=== PATIENT | male | born 1980 | race Native Hawaiian/Other Pacific Islander ===

== ENCOUNTER 2018-03-07 19:06 | Inpatient (IN) | payer BC ==
--- NOTE | 2018-03-07 20:32 | ED PDOC ---
HPI: General Adult Time Seen by Provider: 03/07/18 19:59 Chief Complaint (Nursing): Abnormal Labs History Per: Patient History/Exam Limitations: no limitations Onset/Duration Of Symptoms: Days Additional Complaint(s): Patient with no PMHx sent in by Dr. Piyush Mari for evaluation of elevated BP. Patient states he has no symptoms currently but last week had flu-like illness and neck stiffness that have resolved. Denies headache, chest pain, shortness of breath, or any other symptoms. Past Medical History Reviewed: Historical Data, Nursing Documentation, Vital Signs Vital Signs: Last Vital Signs Temp Pulse 96 H 03/07/18 21:17 Resp 16 03/07/18 21:17 BP 172/126 H 03/07/18 21:17 Pulse Ox 99 03/07/18 23:22 - Medical History PMH: No Chronic Diseases - Family History Family History: States: Unknown Family Hx - Allergies Allergies/Adverse Reactions: Allergies Allergy/AdvReac Type Severity Reaction Status Date / Time No Known Allergies Allergy Verified 03/07/18 19:37 Review of Systems ROS Statement: Except As Marked, All Systems Reviewed And Found Negative Physical Exam - Reviewed Nursing Documentation Reviewed: Yes Vital Signs Reviewed: Yes - Physical Exam Appears: Positive for: Well, Non-toxic, No Acute Distress Head Exam: Positive for: ATRAUMATIC, NORMAL INSPECTION, NORMOCEPHALIC Skin: Positive for: Normal Color, Warm, DRY Eye Exam: Positive for: EOMI, Normal appearance, PERRL ENT: Positive for: Normal ENT Inspection Neck: Positive for: Normal, Painless ROM Cardiovascular/Chest: Positive for: Regular Rate, Rhythm Respiratory: Positive for: CNT, Normal Breath Sounds Gastrointestinal/Abdominal: Positive for: Normal Exam, Soft Back: Positive for: Normal Inspection Extremity: Positive for: Normal ROM Neurologic/Psych: Positive for: Alert, Oriented - Laboratory Results Result Diagrams: 03/07/18 20:34 03/07/18 20:34 - ECG ECG Rhythm: Positive for: Normal QRS, Normal ST Segment, ST/T Changes (ST Depressions in II, III, aVF) O2 Sat by Pulse Oximetry: 99 Pulse Ox Interpretation: Normal Medical Decision Making Medical Decision MakinPM A/P: No PMHx presenting with elevated BP -patient currently asymptomatic -patient has abnormal EKG, elevated BP, and elevated HR -will get labs, give beta-emerson, and re-eval 11PM -HR starting to come down to 160s/90s -case discussed with Dr. June who states only mild BP control at this time and not to bring down too much/too fast -recommends ASA, echo, beta emerson (already given), PRN nitro; Dr. June will see patient in AM and workup for hypertensive changes on EKG v. HOCM -Dr. Mari aware, will admit for hyeprtensive urgency and abnormal EKG Disposition - Clinical Impression Clinical Impression: Abnormal EKG, Hypertensive urgency - Disposition Disposition Time: 23:23 Condition: FAIR Forms: [facility] (Greenlandic)
[2018-03-07 20:49] LABS: BLOOD UREA NITROGEN 13 mg/dl (9-20); CALCIUM 8.8 mg/dL (8.4-10.2); GFR AFRICAN-AMERICAN > 60; GFR NON-AFRICAN AMERICAN 57
[2018-03-07 20:50] LABS: BASO % 0.6 % (0.0-2.0); EOS # 0.2 K/uL (0.0-0.7); EOS % 2.1 % (0.0-4.0); HEMOGLOBIN 15.8 g/dL (12.0-18.0); LYMPH # 2.5 K/uL (1.0-4.3); LYMPH % 28.3 % (20.0-40.0); MEAN CELL VOLUME 89.5 fl (80.0-94.0); MEAN CORPUSCULAR HEMOGLOBIN 30.7 pg (27.0-31.0); MEAN CORPUSCULAR HGB CONC 34.3 g/dL (33.0-37.0); MONO # 0.8 K/uL (0.0-0.8); MONO % 8.6 % (0.0-10.0); NEUT # 5.4 K/uL (1.8-7.0); NEUT % 60.4 % (50.0-75.0); NRBC % 0.1 % (0.0-0.0); RBC 5.14 Mil/uL (4.40-5.90); RED CELL DISTRIBUTION WIDTH 13.6 % (11.5-14.5)
[2018-03-07 21:04] LABS: URINE BILIRUBIN NEGATIVE (NEGATIVE); URINE BLOOD SMALL (NEGATIVE); URINE CLARITY CLEAR (Clear); URINE COLOR YELLOW (YELLOW); URINE GLUCOSE (UA) NEG (Normal); URINE LEUKOCYTE ESTERASE NEG Leu/uL (Negative); URINE PROTEIN 100 mg/dL (NEGATIVE); URINE UROBILINOGEN 0.2-1.0 mg/dL (0.2-1.0)
[2018-03-07] MEDS ORDERED: Metoprolol 1 mg/ml Inj IVP STA (22:14)
[2018-03-07] MEDS ORDERED: Metoprolol 1 mg/ml Inj IVP ONE (22:16)
[2018-03-08] MEDS ORDERED: Metoprolol 1 mg/ml Inj IVP ONE ×2 (00:15→00:20)
[2018-03-08 00:22] LABS: BARBITURATES, UR NEGATIVE (NEGATIVE); BENZODIAZEPINES, UR NEGATIVE (NEGATIVE); OPIATES, UR NEGATIVE (NEGATIVE); PHENCYCLIDINE, UR NEGATIVE (NEGATIVE)
[2018-03-08 08:50] LABS: HEMOGLOBIN 17.1 g/dL (12.0-18.0); MEAN CELL VOLUME 88.2 fl (80.0-94.0); MEAN CORPUSCULAR HEMOGLOBIN 30.5 pg (27.0-31.0); MEAN CORPUSCULAR HGB CONC 34.5 g/dL (33.0-37.0); RBC 5.6 Mil/uL (4.40-5.90); RED CELL DISTRIBUTION WIDTH 13.6 % (11.5-14.5); WHITE BLOOD COUNT 9.1 K/uL (4.8-10.8)
[2018-03-08 09:15] LABS: BLOOD UREA NITROGEN 11 mg/dl (9-20); GFR AFRICAN-AMERICAN > 60; GFR NON-AFRICAN AMERICAN > 60
[2018-03-08 09:16] LABS: ALB/GLOB RATIO 1.1 (1.0-2.1); ALBUMIN 4.2 g/dL (3.5-5.0); ALT/SGPT 49 U/L (21-72); AST/SGOT 35 U/L (17-59); CALCIUM 8.4 mg/dL (8.4-10.2)
--- NOTE | 2018-03-08 09:23 | RAD ---
HISTORY: abnormal EKg COMPARISON: No prior. TECHNIQUE: Chest PA and lateral FINDINGS: LUNGS: No active pulmonary disease. PLEURA: No significant pleural effusion identified. No pneumothorax apparent. CARDIOVASCULAR: Probable top-normal heart size OSSEOUS STRUCTURES: No significant abnormalities. VISUALIZED UPPER ABDOMEN: Normal. OTHER FINDINGS: None. IMPRESSION: No active disease.
--- NOTE | 2018-03-08 09:23 | CARD ---
APPROVED REPORT EKG Measurement Heart [id number] <Conclusion> Sinus tachycardia Incomplete right bundle branch block ST & T wave abnormality, consider inferior ischemia Abnormal ECG
[2018-03-08] MEDS ORDERED: Potassium Chloride 20 mEq ER Tab PO ONE (11:08)
--- NOTE | 2018-03-08 11:29 | CARD ---
APPROVED REPORT EXAM: Two-dimensional and M-mode echocardiogram with Doppler and color Doppler. Other Information Quality : GoodRhythm : INDICATION Abnormal EKG/Arrhythmia 2D DIMENSIONS IVSd1.49 (0.7-1.1cm)LVDd5.09 (3.9-5.9cm) LVOT Diameter2.04 (1.8-2.4cm)PWd1.77 (0.7-1.1cm) IVSs1.62 (0.8-1.2cm)LVDs4.84 (2.5-4.0cm) FS (%) 4.8 %PWs1.62 (0.8-1.2cm) M-Mode DIMENSIONS Left Atrium (MM)4.06 (2.5-4.0cm)IVSd1.59 (0.7-1.1cm) Aortic Root3.34 (2.2-3.7cm)LVDd6.13 (4.0-5.6cm) Aortic Cusp Exc.2.00 (1.5-2.0cm)PWd1.50 (0.7-1.1cm) IVSs1.88 cmFS (%) 38 % LVDs3.78 (2.0-3.8cm)PWs2.22 cm Mitral Valve MV E Gyeesgfl23.4cm/sMV DECEL [id number] A Lufdtacm84.1cm/s MV [id number]/A ratio4.3MVA (PHT)5.72cm2 TDI Lateral E' Peak V12.39cm/sMedial E' Peak V5.30cm/sE/Lateral E'7.9 E/Medial E'18.6 Pulmonary Valve PV Peak Ialrnglz607.7cm/s LEFT VENTRICLE The left ventricle is normal size. There is moderate concentric left ventricular hypertrophy. Left ventricle systolic function is moderately impaired. The Ejection Fraction is 25-30%. There was generalised moderate hypokinesia Transmitral Doppler flow pattern is Grade I-abnormal relaxation pattern. RIGHT VENTRICLE The right ventricle is normal size. There is normal right ventricular wall thickness. The right ventricular systolic function is normal. ATRIA The left atrium is mildly enlarged. The right atrium size is normal. AORTIC VALVE The aortic valve is normal in structure. No aortic regurgitation is present. There is no aortic valvular stenosis. MITRAL VALVE The mitral valve is normal in structure. There is no evidence of mitral valve prolapse. There is no mitral valve stenosis. Mitral regurgitation is mild to moderate. TRICUSPID VALVE The tricuspid valve is normal in structure. There is no tricuspid valve regurgitation noted. PULMONIC VALVE The pulmonary valve is normal in structure. There is no pulmonic valvular regurgitation. GREAT VESSELS The aortic root is normal in size. The IVC is normal in size and collapses >50% with inspiration. PERICARDIAL EFFUSION The pericardium appears normal. <Conclusion> The left ventricle is normal size. There is moderate concentric left ventricular hypertrophy. There was generalised moderate hypokinesia Left ventricle systolic function is moderately impaired. The Ejection Fraction is 25-30%. Transmitral Doppler flow pattern is Grade I-abnormal relaxation pattern. Mitral regurgitation is mild to moderate.
--- NOTE | 2018-03-08 12:01 | US ---
PROCEDURE: Ultrasound of the Kidneys HISTORY: hypertension , hx of renal insufficiency COMPARISON: None available. TECHNIQUE: Sonogram of the kidneys. FINDINGS: RIGHT KIDNEY: Measures: 10.9 x 6.7 x 4.7 cm. Normal in size, contour and echogenicity. No stone, solid mass lesion or hydronephrosis visualized. LEFT KIDNEY: Measures: 10.6 x 5.2 x 5.3 cm. Normal in size, contour and echogenicity. No stone, solid mass lesion or hydronephrosis visualized. OTHER FINDINGS: Partially imaged hepatic steatosis. IMPRESSION: Unremarkable renal sonogram. Incidental note is made of hepatic steatosis.
[2018-03-08] MEDS ORDERED: Metoprolol Succinate 50 mg XL Tab PO SCH (12:15)
--- NOTE | 2018-03-08 12:53 | CP.PCM.CON ---
History of Present Illness - History of Present Illness History of Present Illness: This patient whole is 38 years of age male I was called to see him for abnormal kidney function and hypertension. The history from the patient that he visited his primary care physician doesn't 2 weeks ago as outpatient and he found his blood pressure elevated and then the blood tests came was a creatinine my understanding around 1.6 or 1.7. Patient never had any recent physical checkup and is not aware about hypertension prior to that date. Patient stated that he goes to the gym for 5 days a week and he does have a activity No chest pain no difficulty breathing no palpitation Review of Systems - Constitutional Constitutional: absent: Anorexia, Chills - Cardiovascular Cardiovascular: absent: Acrocyanosis, Chest Pain, Dyspnea, Leg Edema - Respiratory Respiratory: absent: Cough, Dyspnea - Genitourinary Genitourinary: Nocturia. absent: Dysuria - Musculoskeletal Musculoskeletal: absent: Abnormal Gait, Atrophy, Numbness - Integumentary Integumentary: absent: Acne - Psychiatric Psychiatric: absent: Anxiety - Endocrine Endocrine: absent: Fatigue - Hematologic/Lymphatic Hematologic: absent: Easy Bleeding Past Patient History - Past Medical History & Family History Past Medical History?: Yes - Past Social History Smoking Status: Never Smoked - CARDIAC Hx Cardiac Disorders: No - PULMONARY Hx Respiratory Disorders: Yes Hx Sleep Apnea: Yes - NEUROLOGICAL Hx Neurological Disorder: No - HEENT Hx HEENT Problems: No - RENAL Hx Chronic Kidney Disease: No - ENDOCRINE/METABOLIC Hx Endocrine Disorders: No - HEMATOLOGICAL/ONCOLOGICAL Hx Blood Disorders: No - INTEGUMENTARY Hx Dermatological Problems: No - MUSCULOSKELETAL/RHEUMATOLOGICAL Hx Musculoskeletal Disorders: No Hx Falls: No - GASTROINTESTINAL Hx Gastrointestinal Disorders: No - GENITOURINARY/GYNECOLOGICAL Hx Genitourinary Disorders: No - PSYCHIATRIC Hx Psychophysiologic Disorder: No Hx Substance Use: No - SURGICAL HISTORY Hx Eye Surgery: Yes (lasix) Other/Comment: lasix surgery - ANESTHESIA Hx Anesthesia: Yes Hx Anesthesia Reactions: No Meds Allergies/Adverse Reactions: Allergies Allergy/AdvReac Type Severity Reaction Status Date / Time No Known Allergies Allergy Verified 03/07/18 19:37 - Medications Medications: Current Medications Clonidine HCl (Catapres) 0.1 mg PO TID [facility] Metoprolol Succinate (Toprol Xl) 50 mg PO DAILY CLARIBEL Physical Exam - Constitutional Appears: No Acute Distress - Eye Exam Eye Exam: absent: Conjunctival injection - ENT Exam ENT Exam: Mucous Membranes Moist - Neck Exam Neck exam: Negative for: Lymphadenopathy - Respiratory Exam Respiratory Exam: absent: Chest Wall Tenderness, NORMAL BREATHING PATTERN - Cardiovascular Exam Cardiovascular Exam: Gallop, REGULAR RHYTHM, RRR. absent: JVD, Rubs - GI/Abdominal Exam GI & Abdominal Exam: Normal Bowel Sounds. absent: Guarding - Extremities Exam Extremities exam: Negative for: calf tenderness - Back Exam Back exam: absent: CVA tenderness (L), CVA tenderness (R) - Neurological Exam Neurological exam: Alert - Psychiatric Exam Psychiatric exam: Normal Affect Results - Vital Signs Recent Vital Signs: Last Vital Signs Temp 98.5 F 03/08/18 08:16 Pulse 78 03/08/18 09:00 Resp 20 03/08/18 08:16 BP 170/135 H 03/08/18 08:16 Pulse Ox 98 03/08/18 08:16 - Labs Result Diagrams: 03/08/18 08:42 03/08/18 08:42 Labs: Laboratory Results - last 24 hr 03/07/18 03/07/18 03/07/18 20:34 20:34 20:55 WBC 9.0 RBC 5.14 Hgb 15.8 Hct 46.0 MCV 89.5 MCH 30.7 MCHC 34.3 RDW 13.6 Plt Count 248 MPV 8.0 Neut % (Auto) 60.4 Lymph % (Auto) 28.3 [place] % (Auto) 8.6 Eos % (Auto) 2.1 Baso % (Auto) 0.6 Neut # (Auto) 5.4 Lymph # (Auto) 2.5 [place] # (Auto) 0.8 Eos # (Auto) 0.2 Baso # (Auto) 0.0 ESR Sodium 139 Potassium 3.7 Chloride 99 Carbon Dioxide 30 Anion Gap 14 BUN 13 Creatinine 1.4 Est GFR ( Amer) > 60 Est GFR (Non-Af Amer) 57 Random Glucose 109 Calcium 8.8 Total Bilirubin AST ALT Alkaline Phosphatase Troponin I 0.0620 C-React Prot High Sens Total Protein Albumin Globulin Albumin/Globulin Ratio Urine Color Yellow Urine Clarity Clear Urine pH 6.0 Ur Specific [place] 1.014 Urine Protein 100 Urine Glucose (UA) Neg Urine Ketones Negative Urine Blood Small Urine Nitrate Negative Urine Bilirubin Negative Urine Urobilinogen 0.2-1.0 Ur Leukocyte Esterase Neg Urine RBC (Auto) 4 H Urine Microscopic WBC 1 Urine Opiates Screen Urine Methadone Screen Ur Barbiturates Screen Ur Phencyclidine Scrn Ur Amphetamines Screen U Benzodiazepines Scrn U Oth Cocaine Metabols U Cannabinoids Screen 03/07/18 03/07/18 03/07/18 23:30 23:30 23:30 WBC RBC Hgb Hct MCV MCH MCHC RDW Plt Count MPV Neut % (Auto) Lymph % (Auto) [place] % (Auto) Eos % (Auto) Baso % (Auto) Neut # (Auto) Lymph # (Auto) [place] # (Auto) Eos # (Auto) Baso # (Auto) ESR 28 H Sodium Potassium Chloride Carbon Dioxide Anion Gap BUN Creatinine Est GFR ( Amer) Est GFR (Non-Af Amer) Random Glucose Calcium Total Bilirubin AST ALT Alkaline Phosphatase Troponin I C-React Prot High Sens 3.07 H Total Protein Albumin Globulin Albumin/Globulin Ratio Urine Color Urine Clarity Urine pH Ur Specific [place] Urine Protein Urine Glucose (UA) Urine Ketones Urine Blood Urine Nitrate Urine Bilirubin Urine Urobilinogen Ur Leukocyte Esterase Urine RBC (Auto) Urine Microscopic WBC Urine Opiates Screen Negative Urine Methadone Screen Negative Ur Barbiturates Screen Negative Ur Phencyclidine Scrn Negative Ur Amphetamines Screen Negative U Benzodiazepines Scrn Negative U Oth Cocaine Metabols Negative U Cannabinoids Screen Negative 03/08/18 03/08/18 03/08/18 04:20 08:42 08:42 WBC 9.1 RBC 5.60 Hgb 17.1 Hct 49.4 MCV 88.2 MCH 30.5 MCHC 34.5 RDW 13.6 Plt Count 279 MPV Neut % (Auto) Lymph % (Auto) [place] % (Auto) Eos % (Auto) Baso % (Auto) Neut # (Auto) Lymph # (Auto) [place] # (Auto) Eos # (Auto) Baso # (Auto) ESR Sodium 139 Potassium 3.4 L Chloride 98 Carbon Dioxide 32 H Anion Gap 12 BUN 11 Creatinine 1.0 Est GFR ( Amer) > 60 Est GFR (Non-Af Amer) > 60 Random Glucose 124 H Calcium 8.4 Total Bilirubin 1.5 H AST 35 ALT 49 Alkaline Phosphatase 79 Troponin I 0.0520 C-React Prot High Sens Total Protein 8.2 Albumin 4.2 Globulin 4.0 H Albumin/Globulin Ratio 1.1 Urine Color Urine Clarity Urine pH Ur Specific [place] Urine Protein Urine Glucose (UA) Urine Ketones Urine Blood Urine Nitrate Urine Bilirubin Urine Urobilinogen Ur Leukocyte Esterase Urine RBC (Auto) Urine Microscopic WBC Urine Opiates Screen Urine Methadone Screen Ur Barbiturates Screen Ur Phencyclidine Scrn Ur Amphetamines Screen U Benzodiazepines Scrn U Oth Cocaine Metabols U Cannabinoids Screen 03/08/18 11:57 WBC RBC Hgb Hct MCV MCH MCHC RDW Plt Count MPV Neut % (Auto) Lymph % (Auto) [place] % (Auto) Eos % (Auto) Baso % (Auto) Neut # (Auto) Lymph # (Auto) [place] # (Auto) Eos # (Auto) Baso # (Auto) ESR Sodium Potassium Chloride Carbon Dioxide Anion Gap BUN Creatinine Est GFR ( Amer) Est GFR (Non-Af Amer) Random Glucose Calcium Total Bilirubin AST ALT Alkaline Phosphatase Troponin I 0.0460 C-React Prot High Sens Total Protein Albumin Globulin Albumin/Globulin Ratio Urine Color Urine Clarity Urine pH Ur Specific [place] Urine Protein Urine Glucose (UA) Urine Ketones Urine Blood Urine Nitrate Urine Bilirubin Urine Urobilinogen Ur Leukocyte Esterase Urine RBC (Auto) Urine Microscopic WBC Urine Opiates Screen Urine Methadone Screen Ur Barbiturates Screen Ur Phencyclidine Scrn Ur Amphetamines Screen U Benzodiazepines Scrn U Oth Cocaine Metabols U Cannabinoids Screen Assessment & Plan (1) MARIBEL (acute kidney injury) Assessment and Plan: Rule out acute kidney injury patient what I understand presented to his creatinine 1.6 came down to 1.0 at has been improving most likely related to hypertension? #2 uncontrolled hypertension Patient given metoprolol 50 mg once a day. May need to increase the dose to 100 mg. Also add clonidine 0.1 mg every 8 hours. Hold if systolic 120 or less Also add hydrochlorothiazide 12.5 mg daily Workup for secondary hypertension such as aldosterone level remained level XXIV hours urine for VMA and ultrasound of the kidney Status: Acute (2) Hypertensive urgency Status: Acute
--- NOTE | 2018-03-08 15:30 | CP.PCM.CON ---
History of Present Illness - History of Present Illness History of Present Illness: 38 y/o male admitted with accelerated HTN. Pt noted to have abn ekg with evidence of LVH with strain. Echo reveals EF 20%, mod MRMeg Queen cr was noted to be 1.5 last week, yesterday 1.4. Pt denies cp, palp, LH, dizziness, syncope, near syncope, fam hx of heart disease, fam hx of scd, tobacco/drug/steroid/herbal medication use. Pt admits to mild salgado for several months, however denies orthopnea, pnd, MARCELO. Pt admits to snoring and CAROLE which he has not treated with cpap. Pt is sexually active and has not had screening for STD. Additionally pt has tattoos and is unaware if he was ever tested for hepatitis. He admits to a gastroenteritis approximately 3 weeks ago, states it lasted 10 days. Remainder of ROS is negative per pt. No recent travel hx. pt has a fam hx of htn. he was aware of possible HTN diagnosis for about 1 year. Review of Systems - Constitutional Constitutional: As Per HPI. absent: Anorexia, Chills, Daytime Sleepiness, Excessive Sweating, Fatigue, Fever, Frequent Falls, Headache, Increased Appetite , Lethargy, Malaise, Night Sweats, Snoring, Sleep Apnea, Weight Gain, Weight Loss, Weakness, Other - EENT Eyes: As Per HPI. absent: Blind Spots, Blurred Vision, Change in Vision, Decreased Night Vision, Diplopia, Discharge, Dry Eye, Exophthalmos, Floaters, Irritation, Itchy Eyes, Loss of Peripheral Vision, Pain, Photophobia, Requires Corrective Lenses, Sees Flashes, Spots in Vision, Tunnel Vision, Other Visual Disturbances, Loss of Vision, Other Ears: As Per HPI. absent: Decreased Hearing, Ear Discharge, Ear Pain, Tinnitus , Abnormal Hearing, Disequilibrium, Dizziness, Other Nose/Mouth/Throat: As Per HPI. absent: Epistaxis, Nasal Congestion, Nasal Discharge, Nasal Obstruction, Nasal Trauma, Nose Pain, Post Nasal Drip, Sinus Pain, Sinus Pressure, Bleeding Gums, Change in Voice, Dental Pain, Dry Mouth, Dysphagia, Halitosis, Hoarsness, Lip Swelling, Mouth Lesions, Mouth Pain, Odynophagia, Sore Throat, Throat Swelling, Tongue Swelling, Facial Pain, Neck Pain, Neck Mass, Other - Cardiovascular Cardiovascular: As Per HPI. absent: Acrocyanosis, Chest Pain, Chest Pain at Rest, Chest Pain with Activity, Claudication, Diaphoresis, Dyspnea, Dyspnea on Exertion, Edema, Irregular Heart Rhythm, Pain Radiating to Arm/Neck/Jaw, Leg Edema, Leg Ulcers, Lightheadedness, Orthopnea, Palpitations, Paroxysmal Nocturnal Dyspnea, Pedal Edema, Radiating Pain, Rapid Heart Rate, Slow Heart Rate, Syncope, Other - Respiratory Respiratory: As Per HPI, Dyspnea on Exertion. absent: Cough, Dyspnea, Hemoptysis, Wheezing, Snoring, Stridor, Pain on Inspiration, Chest Congestion, Excessive Mucous Production, Change in Mucous Color, Pain with Coughing, Other - Gastrointestinal Gastrointestinal: As Per HPI. absent: Abdominal Pain, Belching, Bloating, Change in Bowel Habits, Change in Stool Character, Coffee Ground Emesis, Constipation, Cramping, Diarrhea, Dyspepsia, Dysphagia, Early Satiety, Excessive Flatus, Fecal Incontinence, Heartburn, Hematemesis, Hematochezia, Loose Stools, Melena, Nausea, Odynophagia, Temesmus, Vomiting, Other - Genitourinary Genitourinary: As Per HPI. absent: Change in Urinary Stream, Difficulty Urinating, Dysuria, Flank Pain, Hematuria, Pyuria, Nocturia, Urinary Incontinence, Urinary Frequency, Urinary Hesitance, Urinary Urgency, Voiding Freq/Small Amts, Freq UTI, Hx Renal/Bladder Calculi, Hx /Renal Surgery, Bladder Distension, Other - Reproductive: Male Reproductive:Male: As Per HPI - Musculoskeletal Musculoskeletal: As Per HPI. absent: Abnormal Gait, Arthralgias, Atrophy, Back Pain, Deformity, Joint Swelling, Limited Range of Motion, Loss of Height, Muscle Cramps, Muscle Weakness, Myalgias, Neck Pain, Numbness, Radiating Pain into Limb, Stiffness, Tingling, Other - Integumentary Integumentary: As Per HPI. absent: Acne, Alopecia, Bleeding Lesions, Change in Hair, Change in Nails, Change in Pigmentation, Changing Lesions, Dry Skin, Erythema, Furuncle, Hirsutism, Lesions, New Lesions, Non-Healing Lesions, Photosensitivity, Pruritus, Rash, Skin Pain, Skin Ulcer, Sores, Striae, Swelling , Unusual Bruising, Wounds, Jaundice, Other - Neurological Neurological: As Per HPI. absent: Abnormal Gait, Abnormal Hearing, Abnormal Movements, Abnormal Speech, Behavioral Changes, Burning Sensations, Confusion, Convulsions, Disequilibrium, Dizziness, Numbness, Focal Weakness, Frequent Falls , Headaches, Lack of Coordination, Loss of Vision, Memory Loss, Paresthesias, Radicular Pain, Restless Legs, Sensory Deficit, Syncope, Tingling, Tremor, Vertigo, Weakness, Other Visual Disturbances, Other - Psychiatric Psychiatric: As Per HPI. absent: Abnormal Sleep Pattern, Anhedonia, Anxiety, Auditory Hallucinations, Behavioral Changes, Change in Appetite, Change in Libido, Confusion, Depression, Difficulty Concentrating, Hallucinations, Homicidal Ideation, Hopelessness, Irritability, Memory Loss, Mood Swings, Panic Attacks, Paranoia, Suicidal Ideation, Visual Hallucinations, Tactile Hallucinations, Other - Endocrine Endocrine: As Per HPI. absent: Change in Body Appearance, Change in Libido, Cold Intolorance, Deepening of Voice, Excessive Sweating, Fatigue, Flushing, Heat Intolorance, Increase in Ring/Shoe/Hat Size, Palpitations, Polydipsia, Polyphagia, Polyuria, Other - Hematologic/Lymphatic Hematologic: As Per HPI. absent: Easy Bleeding, Easy Bruising, Lymphadenopathy , Other Past Patient History - Tetanus Immunizations Tetanus Immunization: Unknown - Past Medical History & Family History Past Medical History?: Yes Pertinent Family History: htn - Past Social History Smoking Status: Never Smoked Chewing Tobacco Use: No Cigar Use: No Alcohol: Social Drugs: Denies Domestic Violence: Negative - CARDIAC Hx Cardiac Disorders: No - PULMONARY Hx Respiratory Disorders: Yes Hx Sleep Apnea: Yes - NEUROLOGICAL Hx Neurological Disorder: No - HEENT Hx HEENT Problems: No - RENAL Hx Chronic Kidney Disease: No - ENDOCRINE/METABOLIC Hx Endocrine Disorders: No - HEMATOLOGICAL/ONCOLOGICAL Hx Blood Disorders: No - INTEGUMENTARY Hx Dermatological Problems: No - MUSCULOSKELETAL/RHEUMATOLOGICAL Hx Musculoskeletal Disorders: No Hx Falls: No - GASTROINTESTINAL Hx Gastrointestinal Disorders: No - GENITOURINARY/GYNECOLOGICAL Hx Genitourinary Disorders: No - PSYCHIATRIC Hx Psychophysiologic Disorder: No Hx Substance Use: No - SURGICAL HISTORY Hx Eye Surgery: Yes (lasix) Other/Comment: lasix surgery - ANESTHESIA Hx Anesthesia: Yes Hx Anesthesia Reactions: No Meds Allergies/Adverse Reactions: Allergies Allergy/AdvReac Type Severity Reaction Status Date / Time No Known Allergies Allergy Verified 03/07/18 19:37 - Medications Medications: Current Medications Clonidine HCl (Catapres) 0.1 mg PO TID [facility] Hydrochlorothiazide (Microzide) 12.5 mg PO DAILY [facility] Last Admin: 03/08/18 13:21 Dose: 12.5 mg Metoprolol Succinate (Toprol Xl) 50 mg PO DAILY [facility] Last Admin: 03/08/18 13:21 Dose: 50 mg Physical Exam - Constitutional Appears: Well - Head Exam Head Exam: ATRAUMATIC, NORMAL INSPECTION, NORMOCEPHALIC - Eye Exam Eye Exam: EOMI, Normal appearance, PERRL. absent: Conjunctival injection, Nystagmus, Periorbital swelling, Periorbital tenderness, Scleral icterus Pupil Exam: NORMAL ACCOMODATION, PERRL. absent: Fixed, Irregular, Miosis, Mydriatic, Unequal - ENT Exam ENT Exam: Mucous Membranes Moist, Normal Exam. absent: Mucous Membranes Dry, Normal External Ear Exam, Normal Oropharynx, TM's Normal Bilaterally - Neck Exam Neck exam: Positive for: Normal Inspection. Negative for: Full Rom, Lymphadenopathy, Meningismus, Tenderness, Thyromegaly Additional comments: no jvd, bruits or hjr - Respiratory Exam Respiratory Exam: Clear to Auscultation Bilateral, NORMAL BREATHING PATTERN. absent: Accessory Muscle Use, Chest Wall Tenderness, Decreased Breath Sounds, Prolonged Expiratory Phase, Rales, Rhonchi, Wheezes, Respiratory Distress, Stridor - Cardiovascular Exam Cardiovascular Exam: REGULAR RHYTHM, +S1, +S2, Systolic Murmur. absent: Bradycardia, Tachycardia, Clicks, Diastolic murmur, Gallop, Irregular Rhythm, JVD, RRR, Rubs, +S4 Additional comments: no clubbing noted. no heaves or thrills. - GI/Abdominal Exam GI & Abdominal Exam: Normal Bowel Sounds, Soft. absent: Bruit, Diminished Bowel Sounds, Distended, Firm, Guarding, Hernia, Hyperactive Bowel Sounds, Hypoactive Bowel Sounds, Mass, Organomegaly, Pulsatile Mass, Rebound, Rigid, Tenderness - Rectal Exam Rectal Exam: Deferred - Extremities Exam Extremities exam: Positive for: normal inspection. Negative for: calf tenderness, full ROM, joint swelling, normal capillary refill, pedal edema, tenderness, pedal pulses present - Back Exam Back exam: NORMAL INSPECTION. absent: CVA tenderness (L), CVA tenderness (R), FULL ROM, muscle spasm, paraspinal tenderness, rash noted, tenderness, vertebral tenderness - Neurological Exam Neurological exam: Alert, CN II-XII Intact, Normal Gait, Oriented x3, Reflexes Normal - Psychiatric Exam Psychiatric exam: Normal Affect, Normal Mood - Skin Skin Exam: Dry, Intact, Normal Color, Warm Results - Vital Signs Recent Vital Signs: Last Vital Signs Temp 98.1 F 03/08/18 13:03 Pulse 105 H 03/08/18 13:21 Resp 20 03/08/18 13:03 BP 180/130 H 03/08/18 13:21 Pulse Ox 98 03/08/18 13:03 - Labs Result Diagrams: 03/08/18 08:42 03/08/18 08:42 Labs: Laboratory Results - last 24 hr 03/07/18 03/07/18 03/07/18 20:34 20:34 20:55 WBC 9.0 RBC 5.14 Hgb 15.8 Hct 46.0 MCV 89.5 MCH 30.7 MCHC 34.3 RDW 13.6 Plt Count 248 MPV 8.0 Neut % (Auto) 60.4 Lymph % (Auto) 28.3 Love % (Auto) 8.6 Eos % (Auto) 2.1 Baso % (Auto) 0.6 Neut # (Auto) 5.4 Lymph # (Auto) 2.5 Love # (Auto) 0.8 Eos # (Auto) 0.2 Baso # (Auto) 0.0 ESR Sodium 139 Potassium 3.7 Chloride 99 Carbon Dioxide 30 Anion Gap 14 BUN 13 Creatinine 1.4 Est GFR ( Amer) > 60 Est GFR (Non-Af Amer) 57 Random Glucose 109 Calcium 8.8 Total Bilirubin AST ALT Alkaline Phosphatase Total Creatine Kinase Troponin I 0.0620 C-React Prot High Sens Total Protein Albumin Globulin Albumin/Globulin Ratio Urine Color Yellow Urine Clarity Clear Urine pH 6.0 Ur Specific [place] 1.014 Urine Protein 100 Urine Glucose (UA) Neg Urine Ketones Negative Urine Blood Small Urine Nitrate Negative Urine Bilirubin Negative Urine Urobilinogen 0.2-1.0 Ur Leukocyte Esterase Neg Urine RBC (Auto) 4 H Urine Microscopic WBC 1 Urine Opiates Screen Urine Methadone Screen Ur Barbiturates Screen Ur Phencyclidine Scrn Ur Amphetamines Screen U Benzodiazepines Scrn U Oth Cocaine Metabols U Cannabinoids Screen 03/07/18 03/07/18 03/07/18 23:30 23:30 23:30 WBC RBC Hgb Hct MCV MCH MCHC RDW Plt Count MPV Neut % (Auto) Lymph % (Auto) [place] % (Auto) Eos % (Auto) Baso % (Auto) Neut # (Auto) Lymph # (Auto) [place] # (Auto) Eos # (Auto) Baso # (Auto) ESR 28 H Sodium Potassium Chloride Carbon Dioxide Anion Gap BUN Creatinine Est GFR ( Amer) Est GFR (Non-Af Amer) Random Glucose Calcium Total Bilirubin AST ALT Alkaline Phosphatase Total Creatine Kinase Troponin I C-React Prot High Sens 3.07 H Total Protein Albumin Globulin Albumin/Globulin Ratio Urine Color Urine Clarity Urine pH Ur Specific [place] Urine Protein Urine Glucose (UA) Urine Ketones Urine Blood Urine Nitrate Urine Bilirubin Urine Urobilinogen Ur Leukocyte Esterase Urine RBC (Auto) Urine Microscopic WBC Urine Opiates Screen Negative Urine Methadone Screen Negative Ur Barbiturates Screen Negative Ur Phencyclidine Scrn Negative Ur Amphetamines Screen Negative U Benzodiazepines Scrn Negative U Oth Cocaine Metabols Negative U Cannabinoids Screen Negative 03/08/18 03/08/18 03/08/18 04:20 08:42 08:42 WBC 9.1 RBC 5.60 Hgb 17.1 Hct 49.4 MCV 88.2 MCH 30.5 MCHC 34.5 RDW 13.6 Plt Count 279 MPV Neut % (Auto) Lymph % (Auto) Love % (Auto) Eos % (Auto) Baso % (Auto) Neut # (Auto) Lymph # (Auto) [place] # (Auto) Eos # (Auto) Baso # (Auto) ESR Sodium 139 Potassium 3.4 L Chloride 98 Carbon Dioxide 32 H Anion Gap 12 BUN 11 Creatinine 1.0 Est GFR ( Amer) > 60 Est GFR (Non-Af Amer) > 60 Random Glucose 124 H Calcium 8.4 Total Bilirubin 1.5 H AST 35 ALT 49 Alkaline Phosphatase 79 Total Creatine Kinase Troponin I 0.0520 C-React Prot High Sens Total Protein 8.2 Albumin 4.2 Globulin 4.0 H Albumin/Globulin Ratio 1.1 Urine Color Urine Clarity Urine pH Ur Specific [place] Urine Protein Urine Glucose (UA) Urine Ketones Urine Blood Urine Nitrate Urine Bilirubin Urine Urobilinogen Ur Leukocyte Esterase Urine RBC (Auto) Urine Microscopic WBC Urine Opiates Screen Urine Methadone Screen Ur Barbiturates Screen Ur Phencyclidine Scrn Ur Amphetamines Screen U Benzodiazepines Scrn U Oth Cocaine Metabols U Cannabinoids Screen 03/08/18 03/08/18 11:57 13:02 WBC RBC Hgb Hct MCV MCH MCHC RDW Plt Count MPV Neut % (Auto) Lymph % (Auto) [place] % (Auto) Eos % (Auto) Baso % (Auto) Neut # (Auto) Lymph # (Auto) Love # (Auto) Eos # (Auto) Baso # (Auto) ESR Sodium Potassium Chloride Carbon Dioxide Anion Gap BUN Creatinine Est GFR ( Amer) Est GFR (Non-Af Amer) Random Glucose Calcium Total Bilirubin AST ALT Alkaline Phosphatase Total Creatine Kinase 61 Troponin I 0.0460 C-React Prot High Sens Total Protein Albumin Globulin Albumin/Globulin Ratio Urine Color Urine Clarity Urine pH Ur Specific [place] Urine Protein Urine Glucose (UA) Urine Ketones Urine Blood Urine Nitrate Urine Bilirubin Urine Urobilinogen Ur Leukocyte Esterase Urine RBC (Auto) Urine Microscopic WBC Urine Opiates Screen Urine Methadone Screen Ur Barbiturates Screen Ur Phencyclidine Scrn Ur Amphetamines Screen U Benzodiazepines Scrn U Oth Cocaine Metabols U Cannabinoids Screen - EKG Data EKG Interpreted by: Myself EKG shows normal: Sinus rhythm Assessment & Plan (1) DCM (dilated cardiomyopathy) Status: Acute (2) CAROLE (obstructive sleep apnea) Status: Acute (3) Noncompliance with CPAP treatment Status: Acute (4) HTN (hypertension) Status: Acute (5) LVH (left ventricular hypertrophy) Status: Acute (6) Viral gastroenteritis Status: Acute - Assessment and Plan (Free Text) Plan: PT WITH CARDIOMYOPATHY, EF 25%, MOD MR, DILATED LA, G1 DIASTOLIC. ADDITIONALLY HE HAS CR ELEVATION ON OUTPT AND ADMITTING LABS. ETIOLOGY IS UNKNOWN. WILL PLAN FOR CARDIAC CATH TOMORROW, R AND L. SHOULD BE EVAL FOR VIRAL ILLNESSES, WELL CAUSES FOR HIS HYPERTENSION. WILL GIVE MUCOMYST AND IVF PRIOR TO CATH. SPOKE WITH PTS PCP, WILL CONSULT ENDOCRINE FOR EVAL OF RENIN/ANGIO SYSTEM. WILL AVOID ACEI UNTIL EVAL AND CR CHECK POST CATH. D/W PT AT LENGTH. WOULD START COREG, NORVASC. STOP HCTZ GIVEN ELECTROLYTES. NO DIURETICS UNTIL AFTER CATH. I HELD CLONIDINE GIVEN NEED FOR COREG. CONT ASA. NEEDS RE-EVAL FOR CAROLE AND REFITTING OF MASK. echo images, ekgs, labs reviewed personally.
[2018-03-08] MEDS ORDERED: Enoxaparin 40 mg Syringe SC STA (15:45)
[2018-03-08] MEDS ORDERED: Magnesium Sulfate 2 gm/50 ml 2 GM/50 ML BAG IVPB ONE (16:00)
[2018-03-08] MEDS ORDERED: Acetylcysteine 20% Inhal Soln (4ml) PO SCH (17:00)
--- NOTE | 2018-03-08 17:37 | CP.PCM.HP ---
History of Present Illness - History of Present Illness History of Present Illness: 38 yo admitted for uncontrolled HTN. Lab work as outpt also showed elevated creatinine with hypochlaremic alkalosis with borderline K+ Present on Admission - Present on Admission Any Indicators Present on Admission: No Past Patient History - Past Medical History & Family History Past Medical History?: Yes - Past Social History Smoking Status: Never Smoked - CARDIAC Hx Cardiac Disorders: No - PULMONARY Hx Respiratory Disorders: Yes Hx Sleep Apnea: Yes - NEUROLOGICAL Hx Neurological Disorder: No - HEENT Hx HEENT Problems: No - RENAL Hx Chronic Kidney Disease: No - ENDOCRINE/METABOLIC Hx Endocrine Disorders: No - HEMATOLOGICAL/ONCOLOGICAL Hx Blood Disorders: No - INTEGUMENTARY Hx Dermatological Problems: No - MUSCULOSKELETAL/RHEUMATOLOGICAL Hx Musculoskeletal Disorders: No Hx Falls: No - GASTROINTESTINAL Hx Gastrointestinal Disorders: No - GENITOURINARY/GYNECOLOGICAL Hx Genitourinary Disorders: No - PSYCHIATRIC Hx Psychophysiologic Disorder: No Hx Substance Use: No - SURGICAL HISTORY Hx Eye Surgery: Yes (lasix) Other/Comment: lasix surgery - ANESTHESIA Hx Anesthesia: Yes Hx Anesthesia Reactions: No Meds Allergies/Adverse Reactions: Allergies Allergy/AdvReac Type Severity Reaction Status Date / Time No Known Allergies Allergy Verified 03/07/18 19:37 Physical Exam - Respiratory Exam Respiratory Exam: Wheezes - Cardiovascular Exam Cardiovascular Exam: REGULAR RHYTHM - GI/Abdominal Exam GI & Abdominal Exam: Normal Bowel Sounds Results - Vital Signs Recent Vital Signs: Last Vital Signs Temp 98.1 F 03/08/18 16:11 Pulse 99 H 03/08/18 16:11 Resp 24 03/08/18 16:11 BP 173/134 H 03/08/18 16:11 Pulse Ox 95 03/08/18 16:11 - Labs Result Diagrams: 03/08/18 08:42 03/08/18 08:42 Labs: Laboratory Results - last 24 hr 03/07/18 03/07/18 03/07/18 20:34 20:34 20:55 WBC 9.0 RBC 5.14 Hgb 15.8 Hct 46.0 MCV 89.5 MCH 30.7 MCHC 34.3 RDW 13.6 Plt Count 248 MPV 8.0 Neut % (Auto) 60.4 Lymph % (Auto) 28.3 [place] % (Auto) 8.6 Eos % (Auto) 2.1 Baso % (Auto) 0.6 Neut # (Auto) 5.4 Lymph # (Auto) 2.5 [place] # (Auto) 0.8 Eos # (Auto) 0.2 Baso # (Auto) 0.0 ESR Sodium 139 Potassium 3.7 Chloride 99 Carbon Dioxide 30 Anion Gap 14 BUN 13 Creatinine 1.4 Est GFR ( Amer) > 60 Est GFR (Non-Af Amer) 57 Random Glucose 109 Calcium 8.8 Total Bilirubin AST ALT Alkaline Phosphatase Total Creatine Kinase Troponin I 0.0620 C-React Prot High Sens Total Protein Albumin Globulin Albumin/Globulin Ratio Urine Color Yellow Urine Clarity Clear Urine pH 6.0 Ur Specific [place] 1.014 Urine Protein 100 Urine Glucose (UA) Neg Urine Ketones Negative Urine Blood Small Urine Nitrate Negative Urine Bilirubin Negative Urine Urobilinogen 0.2-1.0 Ur Leukocyte Esterase Neg Urine RBC (Auto) 4 H Urine Microscopic WBC 1 Urine Opiates Screen Urine Methadone Screen Ur Barbiturates Screen Ur Phencyclidine Scrn Ur Amphetamines Screen U Benzodiazepines Scrn U Oth Cocaine Metabols U Cannabinoids Screen 03/07/18 03/07/18 03/07/18 23:30 23:30 23:30 WBC RBC Hgb Hct MCV MCH MCHC RDW Plt Count MPV Neut % (Auto) Lymph % (Auto) [place] % (Auto) Eos % (Auto) Baso % (Auto) Neut # (Auto) Lymph # (Auto) [place] # (Auto) Eos # (Auto) Baso # (Auto) ESR 28 H Sodium Potassium Chloride Carbon Dioxide Anion Gap BUN Creatinine Est GFR ( Amer) Est GFR (Non-Af Amer) Random Glucose Calcium Total Bilirubin AST ALT Alkaline Phosphatase Total Creatine Kinase Troponin I C-React Prot High Sens 3.07 H Total Protein Albumin Globulin Albumin/Globulin Ratio Urine Color Urine Clarity Urine pH Ur Specific [place] Urine Protein Urine Glucose (UA) Urine Ketones Urine Blood Urine Nitrate Urine Bilirubin Urine Urobilinogen Ur Leukocyte Esterase Urine RBC (Auto) Urine Microscopic WBC Urine Opiates Screen Negative Urine Methadone Screen Negative Ur Barbiturates Screen Negative Ur Phencyclidine Scrn Negative Ur Amphetamines Screen Negative U Benzodiazepines Scrn Negative U Oth Cocaine Metabols Negative U Cannabinoids Screen Negative 03/08/18 03/08/18 03/08/18 04:20 08:42 08:42 WBC 9.1 RBC 5.60 Hgb 17.1 Hct 49.4 MCV 88.2 MCH 30.5 MCHC 34.5 RDW 13.6 Plt Count 279 MPV Neut % (Auto) Lymph % (Auto) [place] % (Auto) Eos % (Auto) Baso % (Auto) Neut # (Auto) Lymph # (Auto) [place] # (Auto) Eos # (Auto) Baso # (Auto) ESR Sodium 139 Potassium 3.4 L Chloride 98 Carbon Dioxide 32 H Anion Gap 12 BUN 11 Creatinine 1.0 Est GFR ( Amer) > 60 Est GFR (Non-Af Amer) > 60 Random Glucose 124 H Calcium 8.4 Total Bilirubin 1.5 H AST 35 ALT 49 Alkaline Phosphatase 79 Total Creatine Kinase Troponin I 0.0520 C-React Prot High Sens Total Protein 8.2 Albumin 4.2 Globulin 4.0 H Albumin/Globulin Ratio 1.1 Urine Color Urine Clarity Urine pH Ur Specific [place] Urine Protein Urine Glucose (UA) Urine Ketones Urine Blood Urine Nitrate Urine Bilirubin Urine Urobilinogen Ur Leukocyte Esterase Urine RBC (Auto) Urine Microscopic WBC Urine Opiates Screen Urine Methadone Screen Ur Barbiturates Screen Ur Phencyclidine Scrn Ur Amphetamines Screen U Benzodiazepines Scrn U Oth Cocaine Metabols U Cannabinoids Screen 03/08/18 03/08/18 11:57 13:02 WBC RBC Hgb Hct MCV MCH MCHC RDW Plt Count MPV Neut % (Auto) Lymph % (Auto) [place] % (Auto) Eos % (Auto) Baso % (Auto) Neut # (Auto) Lymph # (Auto) [place] # (Auto) Eos # (Auto) Baso # (Auto) ESR Sodium Potassium Chloride Carbon Dioxide Anion Gap BUN Creatinine Est GFR ( Amer) Est GFR (Non-Af Amer) Random Glucose Calcium Total Bilirubin AST ALT Alkaline Phosphatase Total Creatine Kinase 61 Troponin I 0.0460 C-React Prot High Sens Total Protein Albumin Globulin Albumin/Globulin Ratio Urine Color Urine Clarity Urine pH Ur Specific [place] Urine Protein Urine Glucose (UA) Urine Ketones Urine Blood Urine Nitrate Urine Bilirubin Urine Urobilinogen Ur Leukocyte Esterase Urine RBC (Auto) Urine Microscopic WBC Urine Opiates Screen Urine Methadone Screen Ur Barbiturates Screen Ur Phencyclidine Scrn Ur Amphetamines Screen U Benzodiazepines Scrn U Oth Cocaine Metabols U Cannabinoids Screen Assessment & Plan - Assessment and Plan (Free Text) Assessment: HTN uncontrolled EKG changes Cardiology Kidney Dx?? Nephrology - Date & Time Date: 03/08/18 Time: 22:22
[2018-03-08] MEDS: Potassium Chloride 20 mEq/15 ml LIQ UD PO SCH ×2 (17:38→23:15)
[2018-03-08] MEDS: Acetylcysteine 20% Inhal Soln (4ml) PO SCH (17:44)
[2018-03-09] MEDS: Acetylcysteine 20% Inhal Soln (4ml) PO SCH (02:00)
--- NOTE | 2018-03-09 03:31 | CON ---
DATE: 03/08/2018 LOCATION: Room 410. HISTORY OF PRESENT ILLNESS: This is a 38-year-old male with recent evaluation of accelerated hypertension and currently undergoing renal and metabolic workup, and is being referred now for endocrine evaluation for possible endocrine hypertension thereof. PAST MEDICAL HISTORY: History of recently diagnosed accelerated hypertension and currently on medications as noted. He also has mild renal insufficiency from the biochemical indices as noted. FAMILY HISTORY: Positive for hypertension and heart disease. SOCIAL HISTORY: The patient has supportive family. No known substance use. REVIEW OF SYSTEMS: As mentioned above, admits to episodic bouts of dizziness and lightheadedness with recent occipital headaches and pressure in the cervical area. Admits to occasional bifrontal headaches. Moreover, admits to recent precordial chest pains with episodic shortness of breath, especially on exertion. His oral intake is optimal with no recent nausea or dyspepsia or vomiting episodes. No recent alterations of bowel and urinary patterns. PHYSICAL EXAMINATION: GENERAL: This is an overweight male, in no apparent distress. VITAL SIGNS: Blood pressure initially of 172/126 at the emergency room, pulse of 100 beats per minute and regular, temperature 98, respirations 20, height is 5 feet 6-1/2 inches, weight is 203 pounds. HEENT: Head normocephalic. Eyes anicteric with pink conjunctivae. Funduscopy not possible at this time. Ears, nose, and throat, otherwise, normal. NECK: Supple. Thyroid gland is normal in size. No carotid bruits or cervical adenopathy. CARDIOPULMONARY: Some adynamic precordium. S1, S2 is rapid and regular. LUNGS: Clear to auscultation. ABDOMEN: Flat, soft with positive bowel sounds: No clinical evidence of any striae in the cutaneous abdominal wall. EXTREMITIES: No peripheral edema. Pulses are +2 bilaterally. LABORATORY DATA: His chemistry showed a BUN initially of 13, sodium 139, potassium 3.7, chloride 99, CO2 of 30, glucose 109, and creatinine 1.4. His troponin is 0.06. ASSESSMENT: This is a 38-year-old male with accelerated hypertension and associated clinical symptoms thereof with concomitant precordial chest pain, currently undergoing cardiac and renal workup at this time. Although quite rare, we also to exclude any underlying endocrine hypertension such as a pheochromocytoma or aldosterone producing adenoma. PLAN OF MANAGEMENT: We would recommend an MRI of the abdomen with emphasis on the adrenal as noted. The initial sonogram did not show any kind of overt mass lesions at this time. We will concur with initially obtaining plasma free metanephrines which at this time is more specific for screening for the presence of a pheochromocytoma instead of the urinary collection for catecholamines or metanephrines or even the VMA. They also have ordered a plasma renin and aldosterone level and ratio as noted. We will add cortisol and ACTH level although quite unlikely that we are dealing with hypercortisolism. We will concur with the present medical and cardiac and renal management at this time in terms of the medications as given. We will add baseline thyroid studies and also hemoglobin A1c as ordered. We will obtain serial chemistries and supplement accordingly needed. We will follow with you. Griselda Barreto MD
[2018-03-09 05:47] LABS: HEMOGLOBIN 16.5 g/dL (12.0-18.0); MEAN CORPUSCULAR HEMOGLOBIN 30.5 pg (27.0-31.0); MEAN CORPUSCULAR HGB CONC 33.9 g/dL (33.0-37.0); RBC 5.39 Mil/uL (4.40-5.90); RED CELL DISTRIBUTION WIDTH 13.9 % (11.5-14.5)
[2018-03-09] MEDS ORDERED: Sodium Chloride 0.45% 1,000 ML IV SCH (06:00)
[2018-03-09 06:17] LABS: LDL CHOLESTEROL 122 mg/dL (0-129)
[2018-03-09 06:29] LABS: ALB/GLOB RATIO 1.1 (1.0-2.1); ALT/SGPT 54 U/L (21-72); AST/SGOT 47 U/L (17-59); BILIRUBIN,DIRECT 0.6 mg/ml (0.0-0.4); BLOOD UREA NITROGEN 13 mg/dl (9-20); CALCIUM 8.6 mg/dL (8.4-10.2); GFR AFRICAN-AMERICAN > 60; GFR NON-AFRICAN AMERICAN > 60; HDL CHOLESTEROL 24 MG/DL (30-70)
--- NOTE | 2018-03-09 10:32 | CP.PCM.PN ---
Subjective - Date & Time of Evaluation Date of Evaluation: 03/09/18 Time of Evaluation: 10:30 - Subjective Subjective: Patient feeling much better today No shortness of breath and no chest pain reported. No nausea no vomiting Objective - Vital Signs/Intake and Output Vital Signs (last 24 hours): Temp Pulse Resp BP Pulse Ox 98.1 F 82 20 137/93 H 96 03/09/18 08:01 03/09/18 09:47 03/09/18 08:01 03/09/18 09:47 03/09/18 08:01 - Medications Medications: Current Medications Acetylcysteine (Acetylcysteine 20%) 3 ml PO Q8 [facility] Stop: 03/09/18 17:01 Last Admin: 03/09/18 02:00 Dose: 3 ml Amlodipine Besylate (Norvasc) 5 mg PO DAILY [facility] Last Admin: 03/09/18 09:47 Dose: 5 mg Carvedilol (Coreg) 12.5 mg PO Q12 [facility] Last Admin: 03/09/18 09:47 Dose: 12.5 mg Sodium Chloride (Sodium Chloride 0.45%) 1,000 mls @ 60 mls/hr IV .[id number] [facility] Stop: 03/09/18 16:01 Last Admin: 03/09/18 05:26 Dose: 60 mls/hr - Labs Labs: 03/09/18 05:20 03/09/18 05:20 - Constitutional Appears: No Acute Distress - ENT Exam ENT Exam: Mucous Membranes Dry - Neck Exam Neck Exam: absent: Lymphadenopathy - Respiratory Exam Respiratory Exam: NORMAL BREATHING PATTERN. absent: Chest Wall Tenderness, Rales - Cardiovascular Exam Cardiovascular Exam: REGULAR RHYTHM. absent: Gallop, Rubs - GI/Abdominal Exam GI & Abdominal Exam: Soft, Normal Bowel Sounds - Extremities Exam Extremities Exam: absent: Calf Tenderness - Back Exam Back Exam: absent: CVA tenderness (L), CVA tenderness (R) - Neurological Exam Neurological Exam: Alert - Psychiatric Exam Psychiatric exam: Normal Affect - Skin Skin Exam: absent: Cyanosis Assessment and Plan (1) MARIBEL (acute kidney injury) Assessment & Plan: Acute kidney injury appeared to be recovering. #2 hypertension appears to be better controlled #3 congestive cardiomyopathy etiology to be determined. Patient has gone for cardiac cath. #4 workup for secondary hypertension underway. With ultrasound of the kidney and remarkable. #5 rising serum bilirubin etiology to be determined as well Status: Acute (2) Hypertensive urgency Status: Acute
[2018-03-09 12:29] LABS: HEPATITIS B SURFACE AG Negative (NEGATIVE)
[2018-03-09 12:34] LABS: HEPATITIS A IGM NEGATIVE (NEGATIVE); HEPATITIS B CORE AB NEGATIVE (NEGATIVE)
[2018-03-09 14:13] LABS: HEPATITIS C ANTIBODY REACTIVE (NEGATIVE)
--- NOTE | 2018-03-09 19:42 | PN ---
DATE: 03/09/2018 LOCATION: Room 410. This is a 38-year-old male who presented here with precordial chest pain and currently undergoing cardiac workup and management and is also being followed closely for metabolic management. He presented here with accelerated hypertension and currently undergoing a detailed renal evaluation and management as noted thereof. His latest chemistry showed a BUN of 13, sodium 138, potassium 3.8, chloride 98, CO2 of 30, glucose 126, and creatinine 1.1. His hemoglobin A1c is 6.9%. This is actually indicative of early type 2 diabetes as noted. His triglyceride levels are extremely elevated at 383 and cholesterol is 224. His cortisol level is 9.0 and TSH is 2.01. The plasma free metanephrines are still pending as they were sent out to a reference lab which will take a week to 10 days for completion. We will continue the present renal and cardiac management as given. We are also awaiting the reports of the plasma renin activity and plasma aldosterone levels as ordered. We will initiate medical nutrition therapy by modifying his food choices to higher protein and less carb portions at this time, especially a very low fat diet and may need eventual intervention with statin therapy as indicated. As the A1c improves, then we will expect improvement of his triglyceride values thereof. We will obtain serial chemistries and supplement accordingly as needed. We will follow and advise accordingly. Griselda Barreto MD
--- NOTE | 2018-03-09 20:36 | CP.PCM.PN ---
Subjective - Date & Time of Evaluation Date of Evaluation: 03/09/18 Time of Evaluation: 22:22 - Subjective Subjective: Above noted Objective - Vital Signs/Intake and Output Vital Signs (last 24 hours): Temp Pulse Resp BP Pulse Ox 97.8 F 91 H 20 144/98 H 93 L 03/09/18 12:12 03/09/18 12:12 03/09/18 12:12 03/09/18 12:12 03/09/18 12:12 - Medications Medications: Current Medications Amlodipine Besylate (Norvasc) 5 mg PO DAILY [facility] Last Admin: 03/09/18 09:47 Dose: 5 mg Carvedilol (Coreg) 12.5 mg PO Q12 [facility] Last Admin: 03/09/18 09:47 Dose: 12.5 mg - Labs Labs: 03/09/18 05:20 03/09/18 05:20 - Respiratory Exam Respiratory Exam: NORMAL BREATHING PATTERN - Cardiovascular Exam Cardiovascular Exam: REGULAR RHYTHM - GI/Abdominal Exam GI & Abdominal Exam: Normal Bowel Sounds Assessment and Plan - Assessment and Plan (Free Text) Assessment: HTN uncontrolled EKG changes Echo abnormal Cardiology Cardiac cath Kidney Dx?? Nephrology Hepatic steatosis BR?? 2 to overweight ??
[2018-03-10 05:36] LABS: HEMOGLOBIN 15.3 g/dL (12.0-18.0); MEAN CELL VOLUME 90.3 fl (80.0-94.0); MEAN CORPUSCULAR HEMOGLOBIN 30.6 pg (27.0-31.0); MEAN CORPUSCULAR HGB CONC 33.8 g/dL (33.0-37.0); WHITE BLOOD COUNT 8.9 K/uL (4.8-10.8)
[2018-03-10 05:39] LABS: INR 1.1 (0.9-1.2); PARTIAL THROMBOPLASTIN TIME 21.4 Seconds (25.6-37.1); PROTHROMBIN TIME 11.7 Seconds (9.8-13.1)
[2018-03-10 05:47] LABS: ALB/GLOB RATIO 1.1 (1.0-2.1); ALBUMIN 3.8 g/dL (3.5-5.0); ALT/SGPT 54 U/L (21-72); AST/SGOT 42 U/L (17-59); BLOOD UREA NITROGEN 14 mg/dl (9-20); CALCIUM 8.6 mg/dL (8.4-10.2); GFR AFRICAN-AMERICAN > 60; GFR NON-AFRICAN AMERICAN > 60
--- NOTE | 2018-03-10 08:16 | CARD ---
APPROVED REPORT EKG Measurement Heart [id number] <Conclusion> Normal sinus rhythm Voltage criteria for left ventricular hypertrophy ST & T wave abnormality, consider inferior ischemia Prolonged QT Abnormal ECG
--- NOTE | 2018-03-10 08:23 | CP.PCM.PN ---
Subjective - Date & Time of Evaluation Date of Evaluation: 03/10/18 Time of Evaluation: 08:20 - Subjective Subjective: Patient feeling good No chest pain no shortness of breath no difficulty breathing. Objective - Vital Signs/Intake and Output Vital Signs (last 24 hours): Temp Pulse Resp BP Pulse Ox 97.8 F 80 19 147/87 97 03/10/18 04:00 03/10/18 06:00 03/10/18 06:00 03/10/18 06:00 03/10/18 06:00 - Medications Medications: Current Medications Amlodipine Besylate (Norvasc) 5 mg PO DAILY [facility] Last Admin: 03/09/18 09:47 Dose: 5 mg Aspirin (Aspirin Chewable) 81 mg PO DAILY [facility] Atorvastatin Calcium (Lipitor) 40 mg PO DAILY [facility] Carvedilol (Coreg) 25 mg PO Q12 [facility] Fenofibrate (Tricor) 145 mg PO DAILY [facility] Ramipril (Altace) 5 mg PO DAILY [facility] Ticagrelor (Brilinta) 90 mg PO BID [facility] - Labs Labs: 03/10/18 04:30 03/10/18 04:30 PT 11.7 Seconds (9.8-13.1) 03/10/18 04:30 INR 1.1 (0.9-1.2) 03/10/18 04:30 APTT 21.4 Seconds (25.6-37.1) L 03/10/18 04:30 - Constitutional Appears: No Acute Distress - ENT Exam ENT Exam: Mucous Membranes Moist - Neck Exam Neck Exam: absent: Lymphadenopathy - Respiratory Exam Respiratory Exam: NORMAL BREATHING PATTERN. absent: Chest Wall Tenderness - Cardiovascular Exam Cardiovascular Exam: REGULAR RHYTHM. absent: Rubs - GI/Abdominal Exam GI & Abdominal Exam: Soft, Normal Bowel Sounds - Extremities Exam Extremities Exam: absent: Calf Tenderness - Back Exam Back Exam: absent: CVA tenderness (L), CVA tenderness (R) - Neurological Exam Neurological Exam: Alert - Skin Skin Exam: absent: Cyanosis Assessment and Plan (1) MARIBEL (acute kidney injury) Assessment & Plan: Acute kidney injury patient recovered. Hypertension patient appeared to be controlled on the current medication. Status post cardiac catheterization with the stenting no detail yet in the chart. Hyperlipidemia Follow-up as needed Status: Acute (2) Hypertensive urgency Status: Acute
[2018-03-10] MEDS ORDERED: Magnesium Sulfate 2 gm/50 ml 2 GM/50 ML BAG IVPB ONE (11:38)
[2018-03-10] MEDS ORDERED: Potassium Chloride 20 mEq/15 ml LIQ UD PO ONE (11:39)
--- NOTE | 2018-03-10 11:42 | CP.PCM.PN ---
Subjective - Date & Time of Evaluation Date of Evaluation: 03/10/18 Time of Evaluation: 14:24 - Subjective Subjective: PT WITHOUT ANY COMPLAINTS. NO CP, SOB, PALP, DIZZINESS, GROIN PAIN, LE PAIN. NONSUSTAINED VT NOTED ON TELE TODAY. Objective - Vital Signs/Intake and Output Vital Signs (last 24 hours): Temp Pulse Resp BP Pulse Ox 98 F 82 17 104/63 96 03/10/18 08:00 03/10/18 11:00 03/10/18 11:00 03/10/18 11:00 03/10/18 11:00 - Medications Medications: Current Medications Aspirin (Aspirin Chewable) 81 mg PO DAILY [facility] Last Admin: 03/10/18 08:42 Dose: 81 mg Atorvastatin Calcium (Lipitor) 40 mg PO DAILY [facility] Last Admin: 03/10/18 08:42 Dose: 40 mg Carvedilol (Coreg) 25 mg PO Q12 [facility] Last Admin: 03/10/18 08:41 Dose: 25 mg Fenofibrate (Tricor) 145 mg PO DAILY [facility] Last Admin: 03/10/18 08:42 Dose: 145 mg Magnesium Sulfate 2 gm/ Sodium (Chloride) 104 mls @ 104 mls/hr IVPB ONCE ONE PRN Reason: 2 GM/HR Stop: 03/10/18 12:37 Potassium Chloride (Potassium Chloride Oral Soln) 40 meq PO ONCE ONE Stop: 03/10/18 11:40 Ramipril (Altace) 5 mg PO DAILY [facility] Last Admin: 03/10/18 08:43 Dose: 5 mg Ticagrelor (Brilinta) 90 mg PO BID [facility] Last Admin: 03/10/18 08:42 Dose: 90 mg - Labs Labs: 03/10/18 04:30 03/10/18 04:30 PT 11.7 Seconds (9.8-13.1) 03/10/18 04:30 INR 1.1 (0.9-1.2) 03/10/18 04:30 APTT 21.4 Seconds (25.6-37.1) L 03/10/18 04:30 - Constitutional Appears: Well - Head Exam Head Exam: ATRAUMATIC, NORMAL INSPECTION, NORMOCEPHALIC - Eye Exam Eye Exam: EOMI, Normal appearance, PERRL. absent: Conjunctival injection, Nystagmus, Periorbital swelling, Periorbital tenderness, Scleral icterus Pupil Exam: NORMAL ACCOMODATION, PERRL - ENT Exam ENT Exam: Mucous Membranes Moist, Normal Exam. absent: Mucous Membranes Dry, Normal External Ear Exam, Normal Oropharynx, TM's Normal Bilaterally - Neck Exam Neck Exam: Full ROM, Normal Inspection. absent: Lymphadenopathy, Meningismus, Tenderness, Thyromegaly - Respiratory Exam Respiratory Exam: Clear to Ausculation Bilateral, NORMAL BREATHING PATTERN. absent: Accessory Muscle Use, Chest Wall Tenderness, Decreased Breath Sounds, Prolonged Expiratory Phase, Rales, Rhonchi, Wheezes, Respiratory Distress, Stridor - Cardiovascular Exam Cardiovascular Exam: REGULAR RHYTHM, +S1, +S2, Murmur. absent: Bradycardia, Tachycardia, Clicks, Diastolic murmur, Gallop, Irregular Rhythm, JVD, RRR, Rubs , +S4 - GI/Abdominal Exam GI & Abdominal Exam: Soft, Normal Bowel Sounds. absent: Bruit, Distended, Firm , Guarding, Rigid, Tenderness, Diminished Bowel Sounds, Hernia, Hyperactive Bowel Sounds, Hypoactive Bowel Sounds, Organomegaly, Pulsatile Mass, Rebound, Mass - Rectal Exam Rectal Exam: Deferred - Extremities Exam Extremities Exam: Full ROM, Normal Capillary Refill, Normal Inspection. absent : Calf Tenderness, Joint Swelling, Pedal Edema, Tenderness Additional comments: RIGHT GROIN CATH SITE IS NON-TENDER, NO BRUITS, PULSES NORMAL, NO HEMATOMA. - Back Exam Back Exam: NORMAL INSPECTION. absent: CVA tenderness (L), CVA tenderness (R), Full ROM, muscle spasm, paraspinal tenderness, rash noted, tenderness, vertebral tenderness - Neurological Exam Neurological Exam: Alert, Awake, CN II-XII Intact, Normal Gait, Oriented x3. absent: Abnormal Gait, Altered, Motor Sensory Deficit, Reflexes Normal - Psychiatric Exam Psychiatric exam: Normal Affect, Normal Mood. absent: Agitated, Anxious, Depressed, Flat Affect, Homicidal Ideation, Manic, Suicidal Ideation - Skin Skin Exam: Dry, Intact, Normal Color, Warm. absent: Abrasion, Cyanosis, Diaphoretic, Erythema, Mottled, Pallor, Pallor, Petechiae, Rash, Urticaria, Vesicles Assessment and Plan (1) Ventricular tachycardia, monomorphic Assessment & Plan: MONOMORPHIC NONSUSTAINED REPURFUSION VT ON TELE. PT HAS ALREADY BEEN FITTED FOR LIFE VEST. WOULD MONITOR IN ICU FOR 24 HRS. IF RECURRENT ARRYTHMIA WILL USE LIDOCAINE DRIP. MAG AND KCL REPLACEMENT ORDERS WERE PLACED IN AM. ARRYTHMIA OCCURRED PRIOR TO MAG INFUSION. RECHECK LABS IN AM. Status: Acute (2) Stented coronary artery Assessment & Plan: 95% proximal LAD. type III LAD with large territory that is consistent with multi-segmental hypokinesis on echo. PCI PERFORMED LAST NIGHT AT [facility]. 3.5 RODRIGO PLACED AND DILATED TO 3.8. RESULT 95% TO 0%. NO COMPLICATIONS. PT TRANSFERED BACK TO [facility] [place] LATE LAST NIGHT. STABLE OVERNIGHT. COREG INCREASED. STARTED RAMIPRIL, BRILLINTA, ASA 81MG, STATIN AND TRICOR. WILL NEED DUAL ANTIPLT FOR 1 YEAR. Status: Acute (3) CAD (coronary artery disease) Status: Acute (4) DCM (dilated cardiomyopathy) Assessment & Plan: ECHO IN 3 MONTHS. IF EF REMAINS LOW WILL NEED AICD. WILL HAVE PT EVALUATED FOR LIFE VEST USE IN INTERIM. Status: Acute (5) CAROLE (obstructive sleep apnea) Assessment & Plan: RIGHT HEART REVEALED SIGNIFICANT INCREASES IN PAP AND RIGHT HEART PRESSURES WITH OBSTRUCTION DURING CATH. PT DID DESAT FROM 99% TO 91% WHEN SNORING. NO ARRYTHMIAS. PT SHOULD USE CPAP OR HAVE EVALUATION FOR ELECTRICAL STIM IMPLANTABLE DEVICE. Status: Acute (6) Noncompliance with CPAP treatment Status: Acute (7) HTN (hypertension) Assessment & Plan: BP DECREASED TODAY. WILL D/C NORVASC TO AVOID HYPOTENSION. Status: Acute (8) LVH (left ventricular hypertrophy) Status: Acute (9) Viral gastroenteritis Status: Acute - Assessment and Plan (Free Text) Plan: RIGHT AND LEFT HEART CATH PERFORMED. PT HAD 95% PROXIMAL TYPE III LAD WITH ISCHEMIC TERRITORY C/W MULTI-SEGMENT INVOLVEMENT ON ECHO AND LOW EF. DISCUSSED WITH DR ROSARIO, PT AND PTS FAMILY. I HAVE SCHEDULED THE PT FOR FOLLOW UP IN OFFICE AND HAVE GIVEN HIM DATE AND TIME.
--- NOTE | 2018-03-10 14:50 | CP.PCM.PN ---
Subjective - Date & Time of Evaluation Date of Evaluation: 03/10/18 Time of Evaluation: :22 - Subjective Subjective: Above noted Objective - Vital Signs/Intake and Output Vital Signs (last 24 hours): Temp Pulse Resp BP Pulse Ox 97.8 F 78 21 102/45 L 95 03/10/18 12:00 03/10/18 13:00 03/10/18 13:00 03/10/18 13:00 03/10/18 13:00 - Medications Medications: Current Medications Aspirin (Aspirin Chewable) 81 mg PO DAILY [facility] Last Admin: 03/10/18 08:42 Dose: 81 mg Atorvastatin Calcium (Lipitor) 40 mg PO DAILY [facility] Last Admin: 03/10/18 08:42 Dose: 40 mg Carvedilol (Coreg) 25 mg PO Q12 [facility] Last Admin: 03/10/18 08:41 Dose: 25 mg Fenofibrate (Tricor) 145 mg PO DAILY [facility] Last Admin: 03/10/18 08:42 Dose: 145 mg Ramipril (Altace) 5 mg PO DAILY [facility] Last Admin: 03/10/18 08:43 Dose: 5 mg Ticagrelor (Brilinta) 90 mg PO BID [facility] Last Admin: 03/10/18 08:42 Dose: 90 mg - Labs Labs: 03/10/18 04:30 03/10/18 04:30 PT 11.7 Seconds (9.8-13.1) 03/10/18 04:30 INR 1.1 (0.9-1.2) 03/10/18 04:30 APTT 21.4 Seconds (25.6-37.1) L 03/10/18 04:30 - Respiratory Exam Respiratory Exam: NORMAL BREATHING PATTERN - Cardiovascular Exam Cardiovascular Exam: REGULAR RHYTHM - GI/Abdominal Exam GI & Abdominal Exam: Normal Bowel Sounds Assessment and Plan - Assessment and Plan (Free Text) Assessment: S/P PTCA LAD 95% HTN Dilated cardiomyopathy Dec LV fxn ICU RUBY ASA Brillinta Statin Tricor Life vest (AICD) COSA C-PAP Pulmonary NIDDM?? AIC 6.8 Triglycerides Low HDL Endo Kidney Dx?? Nephrology Hepatic steatosis BR?? 2 to overweight ??
--- NOTE | 2018-03-11 01:19 | PN ---
DATE: 03/10/2018 ENDO FOLLOWUP NOTE LOCATION: Room 433 ICU. SUBJECTIVE: This is a 38-year-old male who was presenting here with chest pain and evaluated to have an acute myocardial infarction with subsequent catheterization showing a 95% occlusion of the LAD and underwent a percutaneous angioplasty procedure at the [facility] and is now being followed closely for metabolic management. He also has been in with accelerated hypertension and is undergoing metabolic and renal workup as noted. Moreover, his echocardiogram showed dilated cardiomyopathy with reduced ejection fraction as noted, which reveals ejection fraction and subsequent placement of a LifeVest with AICD as noted. LABORATORY DATA: His latest chemistries showed a BUN of 14, sodium 138, potassium 3.7, chloride 101, CO2 of 29, glucose 99 and creatinine 1. His hemoglobin A1c is 6.9% indicative of early type 2 diabetes as noted. His serum cortisol is 9 with a TSH of 2.01 and triglyceride levels of 383. ASSESSMENT AND PLAN: So at this time, we will initiate a carbohydrate consistent diet with 2 gm sodium and low-fat, low-cholesterol diet as ordered. We will hold off the initiation of oral hypoglycemic therapy for now, but we will observe his glycemic fluctuations thereof and do fingerstick glucose b.i.d. before meals as ordered. We will obtain serial chemistries and supplement accordingly as needed. We will follow up. Griselda Barreto MD
[2018-03-11] MEDS ORDERED: Insulin Lispro (humaLOG) 100 Units/ml Inj SC SCH (07:30)
--- NOTE | 2018-03-11 10:43 | PN ---
DATE: 03/11/2018 SUBJECTIVE: The patient is seen and examined. Interim events noted. The patient . The patient remains in the intensive care unit. Awake, responsive, feels okay. Denies any chest pain, shortness of breath or dizziness. PHYSICAL EXAMINATION: GENERAL: The patient is in no acute distress. VITAL SIGNS: Stable. HEART: S1, S2, normal and regular. LUNGS: Good bilateral air exchange. ABDOMEN: Soft and nontender. EXTREMITIES: No edema. No calf swelling. No tenderness. No acute ischemia. TABLE TENDER SLUDGE: Essentially unchanged. DIAGNOSTIC DATA: Available diagnostic data reviewed. Telemetry monitoring does not reveal significant arrhythmias. ASSESSMENT AND PLAN: Overall, the patient general medical condition is stable. Consults noted and appreciated. Plan as ordered. Mauricio Delgado MD
[2018-03-11 11:51] LABS: HEMOGLOBIN 14.1 g/dL (12.0-18.0); MEAN CELL VOLUME 90.2 fl (80.0-94.0); MEAN CORPUSCULAR HEMOGLOBIN 30.9 pg (27.0-31.0); MEAN CORPUSCULAR HGB CONC 34.3 g/dL (33.0-37.0); RBC 4.57 Mil/uL (4.40-5.90); RED CELL DISTRIBUTION WIDTH 13.8 % (11.5-14.5); WHITE BLOOD COUNT 7.3 K/uL (4.8-10.8)
[2018-03-11 12:03] LABS: ALBUMIN 3.5 g/dL (3.5-5.0); ALT/SGPT 51 U/L (21-72); AST/SGOT 30 U/L (17-59); BLOOD UREA NITROGEN 13 mg/dl (9-20); CALCIUM 8.3 mg/dL (8.4-10.2); GFR AFRICAN-AMERICAN > 60; GFR NON-AFRICAN AMERICAN > 60
[2018-03-11 12:27] VITALS: TEMP 98.3; O2SAT 96
[2018-03-11] MEDS ORDERED: Potassium Chloride 20 mEq ER Tab PO ONE (13:32)
[2018-03-11 14:18] LABS: ALDO/PRA RATIO 5.6 Ratio (0.9-28.9)
[2018-03-11 14:27] VITALS: BP 110/63; PULSE 80; RESP 21
--- NOTE | 2018-03-11 15:03 | CP.PCM.PN ---
Subjective - Date & Time of Evaluation Date of Evaluation: 03/11/18 Time of Evaluation: 09:30 - Subjective Subjective: RENAL: seen in follow up no complaints O:vs as below gen: nad sclera: anictric op: clear neck: supple no thyromegaly cv+S1+s2 no rub abd soft lungs cta b/l ext no edema neuro:a+Ox3 psych: nml affect skno no rash imp: arf/hypertension/cad/ hyperlipidemia plan: MARIBEL resolved bp well controlled f/u cardiology Objective - Vital Signs/Intake and Output Vital Signs (last 24 hours): Temp Pulse Resp BP Pulse Ox 98.3 F 80 21 110/63 96 03/11/18 12:00 03/11/18 14:26 03/11/18 14:26 03/11/18 14:26 03/11/18 14:26 - Medications Medications: Current Medications Aspirin (Aspirin Chewable) 81 mg PO DAILY [facility] Last Admin: 03/11/18 09:03 Dose: 81 mg Atorvastatin Calcium (Lipitor) 40 mg PO DAILY [facility] Last Admin: 03/11/18 09:03 Dose: 40 mg Carvedilol (Coreg) 25 mg PO Q12 [facility] Last Admin: 03/11/18 09:04 Dose: 25 mg Fenofibrate (Tricor) 145 mg PO DAILY [facility] Last Admin: 03/11/18 09:02 Dose: 145 mg Insulin Human Lispro (Humalog) 0 units SC ACBD [facility] Last Admin: 03/11/18 08:56 Dose: Not Given Ramipril (Altace) 5 mg PO DAILY [facility] Last Admin: 03/11/18 09:03 Dose: 5 mg Ticagrelor (Brilinta) 90 mg PO BID [facility] Last Admin: 03/11/18 09:03 Dose: 90 mg - Labs Labs: 03/11/18 11:48 03/11/18 11:48 PT 11.7 Seconds (9.8-13.1) 03/10/18 04:30 INR 1.1 (0.9-1.2) 03/10/18 04:30 APTT 21.4 Seconds (25.6-37.1) L 03/10/18 04:30
--- NOTE | 2018-03-12 00:12 | PN ---
DATE: 03/11/2018 LOCATION: ICU room 433. SUBJECTIVE: This is a 38-year-old male with recent presentation with precordial chest pain and evaluated to have coronary artery disease and underwent a [facility] and is being followed closely here in ICU for hemodynamic monitoring. His glycemic levels are slightly fluctuating, but much improved at this time his. His hemoglobin A1c was reported as 6.9% indicative of very early type 2 diabetes as noted. LABORATORY DATA: His latest chemistry showed a BUN of 13, sodium 137, potassium 3.9, chloride 102, CO2 28, glucose 147 and creatinine 1. His fingerstick glucose are actually optimal ranging from 96-147 mg/dL. ASSESSMENT AND PLAN: So at this time, we will observe his glycemic fluctuations and hold off the initiation of oral hypoglycemic therapy for now as noted. We will consider however the addition of metformin given as 500 mg b.i.d. as indicated. We will obtain serial chemistries and supplement accordingly needed. We will follow. Griselda Barreto MD
== END 2018-03-11 15:32 | disposition home or self-care (01) | DRG 247 ==
LOC: H.ER 19:06 → H.ERHOLD 23:13 → H.TEL 03-08 01:50 → OBSVTOIN 03-08 12:05 → H.TEL 03-09 18:09 → H.ICU/CCU 03-09 23:29
PROVIDERS: ADMIT Family Medicine Geriatric Medicine; ATTEND Family Medicine Geriatric Medicine
PROC: 027034Z Dilation of Coronary Artery, One Artery with Drug-eluting Intraluminal Device, Percutaneous Approach (ICD-10-PCS; principal; 2018-03-09)
PROC: 4A023N8 Measurement of Cardiac Sampling and Pressure, Bilateral, Percutaneous Approach (ICD-10-PCS; 2018-03-09)
PROC: B206YZZ Plain Radiography of Right and Left Heart using Other Contrast (ICD-10-PCS; 2018-03-09)
DX: I16.0 Hypertensive urgency (principal); I47.2 Ventricular tachycardia; I42.0 Dilated cardiomyopathy; N17.9 Acute kidney failure, unspecified; A08.39 Other viral enteritis; E87.3 Alkalosis; I25.10 Atherosclerotic heart disease of native coronary artery without angina pectoris; I51.7 Cardiomegaly; R94.31 Abnormal electrocardiogram [ECG] [EKG]; I10 Essential (primary) hypertension; E78.5 Hyperlipidemia, unspecified; G47.33 Obstructive sleep apnea (adult) (pediatric); E11.9 Type 2 diabetes mellitus without complications; Z91.19 Patient's noncompliance with other medical treatment and regimen; Z82.49 Family history of ischemic heart disease and other diseases of the circulatory system